=== PATIENT | female | born 1935 | race Caucasian/White ===

== ENCOUNTER 2021-12-21 09:36 | Outpatient (CLI) | payer OTHER | END 2021-12-21 09:40 | disposition home or self-care (01) | LOC: SONOGRAMA 09:36 | PROVIDERS: ATTEND Pathology Anatomic Pathology & Clinical Pathology | DX: D47.Z9 Other specified neoplasms of uncertain behavior of lymphoid, hematopoietic and related tissue (principal); E04.1 Nontoxic single thyroid nodule ==